=== PATIENT | male | born 1960 | race African-American/Black ===

== ENCOUNTER 2020-06-15 21:51 | Emergency (ER) | payer SELFPAY ==
[~2020-06-15] VITALS: Ht 182.9 cm; Wt 88.5 kg
[2020-06-15 22:00] VITALS: BP 147/91
== END 2020-06-15 22:31 | disposition left against medical advice (07) ==
LOC: ER 21:53
DX: R51.9 Headache, unspecified (principal); Z53.21 Procedure and treatment not carried out due to patient leaving prior to being seen by health care provider

== ENCOUNTER 2022-01-01 06:19 | Emergency (ER) | payer BC, OTHER ==
[~2022-01-01] VITALS: Ht 182.9 cm; Wt 81.8 kg
[2022-01-01 07:11] VITALS: BP 127/88
[2022-01-01] MEDS ORDERED: KETOROLAC TROMETH 60MG/2ML VIAL IM ONE (07:15)
[2022-01-01] MEDS ORDERED: CYCL-839 PO (08:29)
[2022-01-01] MEDS ORDERED: IBUP800T27 PO (08:29)
== END 2022-01-01 08:35 | disposition home or self-care (01) ==
LOC: ER 06:19
DX: M77.9 Enthesopathy, unspecified (principal); M19.012 Primary osteoarthritis, left shoulder; M50.30 Other cervical disc degeneration, unspecified cervical region; F17.210 Nicotine dependence, cigarettes, uncomplicated; X50.0XXA Overexertion from strenuous movement or load, initial encounter; Y93.89 Activity, other specified; Y92.89 Other specified places as the place of occurrence of the external cause; Y99.8 Other external cause status
CPT/HCPCS: 72040; 73030; 73080; 96372; 99284; J1885